=== PATIENT | male | born 1940 | race Caucasian/White ===

== ENCOUNTER 2017-04-08 15:16 | Emergency (ER) | payer OTHER ==
[2017-04-08 15:22] VITALS: BP 151/75; BMI 26.3
--- NOTE | 2017-04-08 15:28 | DR.GENAD ---
HPI - PCP Primary Care Physician: MARGO LEW - Complaint/Symptoms Chief Complaint Doctors Comments: Patient denies pain Chief Complaint:: PT WAS AT [employer] GETTING GAS AND THERE WAS A RAISED AREA OF CEMENT AND HE FELL AND HIT THE CEMENT AND PT C/O LEFT KNEE, RIGHT KNEE AND RIGHT SHOULDER, NECK ,ARM FACE .. - Source History Provided: Patient - Mode of Arrival Mode of Arrival: Ambulatory - Timing Onset of Chief Complaint: 04/08/17 PMH - PMH Past Medical History: Yes Past Medical History: Arthritis Past Medical History Comment: CVA, PROSTATE CANCER . Past Surgical History: Yes Past Surgical History Comment: EYE SURGERY . - Family History History of Family Medical Conditions: No - Social History Does patient currently use any type of tobacco product: No Have you used tobacco products in the last 12 months: No Type of Tobacco Use: None Does any household member use tobacco: No Alcohol Use: Occasionally Do you use any recreational Drugs:: No Lives With: Family Lives Where: Home - infectious screening In the last 2 months have you had wt loss of >10#?: NO Have you had fever, night sweats or hemotysis?: No Have you traveled outside the country in the last 6 months?: No Isolation: Standard ROS - Review of Systems Constitutional: No Symptoms Reported Eyes: No Symptoms Reported ENTM: No Symptoms Reported Respiratoy: No Symptoms Reported Cardiovascular: No Symptoms Reported Gastrointestinal/Abdominal: No Symptoms Reported Genitourinary: No Symptoms Reported Neurological: No Symptoms Reported Musculoskeletal: Other (head trauma) Integumentary: No Symptoms Reported Hematologic/Lymphatic: No Symptoms Reported Endocrine: No Symptoms Reported Psychiatric: No Symptoms Reported All Other Systems: Reviewed and Negative PE - Vital Signs Vitals: Temperature 98.5 F Pulse Rate 71 Respiratory Rate 20 Blood Pressure [Left Arm] 182/88 Blood Pressure [Right Arm] 160/85 Blood Pressure 151/75 O2 Sat by Pulse Oximetry 99 - General Limitations: No Limitations General Appearance: Alert, In No Apparent Distress - Head Head Exam: Other (Small hematoma right lateral orbit) - Eyes Eye exam: PERRL, EOMI, Periorbital Swelling - ENT ENT Exam: Normal Exam External Ear Exam: Normal External Inspection TM/Canal Exam: Bilateral Normal Nose Exam: Normal Nose Exam Mouth Exam: Normal Inspection Throat Exam: Normal Inspection - Neck Neck Exam: Normal Inspection, Full ROM - Chest Chest Inspection: Normal Inspection, Symmetric Chest Wall Rise - Respiratory Respiratory Exam: Normal Lung Sounds Bilat Respiratory Exam: Bilateral Clear to Auscultation - Cardiovascular Cardiovascular Exam: Regular Rate, Normal Rhythm - Abdominal Exam Abdominal Exam: Normal Inspection, Normal Bowel Sounds Abdominal Tenderness: negative: RUQ, RLQ, LUQ, LLQ, Epigastrium, Suprapubic, Diffuse, Mild, Moderate, Severe, Other - Extremities Extremities Exam: Normal Inspection, Full ROM - Back Back Exam: Normal Inspection, Full ROM - Neurologic Neurological Exam: Alert, Oriented X3, CN II-XII Intact - Diagnosis Discharge Problem: Traumatic hematoma of right orbit Qualifiers: Encounter type: initial encounter Qualified Code(s): S05.11XA - Contusion of eyeball and orbital tissues, right eye, initial encounter - Discharge Plan Condition: Stable - Follow ups/Referrals Follow ups/Referrals: Regulo Isabel [Primary Care Provider] - 3 days - Instructions
[2017-04-08] MEDS ORDERED: MORPHINE SULFATE INJ 4 MG IM ONE (15:29)
[2017-04-08] MEDS ORDERED: MORPHINE SULFATE INJ 4 MG ONE (15:30)
--- NOTE | 2017-04-08 16:44 | CT ---
CT head without contrast Indication: Fall with right orbital swelling Comparison: 09/17/2015 Technique: CT images of the head were obtained without contrast. Automatic exposure control was utili zed. Findings: Right phthisis bulbi is noted. There is mild subcutaneous stranding along the right orbital rim. No orbital or calvarial fracture identified. The visualized paranasal sinuses and mastoid air c ells are grossly clear. There is chronic right parietal encephalomalacia, in keeping with remote infarct. Additional smaller areas of right frontal encephalomalacia noted. There is patchy and confluent periventricular deep whi te matter hypoattenuation, consistent with advanced microangiopathy. No acute bleed, mass effect, or abnormal extra-axial collection identified. Impression: Right periorbital contusion. No acute intracranial abnormality. Chronic findings as above. Reported By:
== END 2017-04-08 17:22 | disposition home or self-care (01) ==
LOC: ER 15:32
DX: S05.11XA Contusion of eyeball and orbital tissues, right eye, initial encounter (principal); W01.198A Fall on same level from slipping, tripping and stumbling with subsequent striking against other object, initial encounter; Y92.9 Unspecified place or not applicable
CPT/HCPCS: 70450; 99282; 99283; J2270